=== PATIENT | female | born 1955 | race Caucasian/White ===

== ENCOUNTER 2017-10-09 15:01 | Emergency (ER) | payer OTHER ==
[2017-10-09] MEDS: HYDROCODONE/APAP (5/325) TAB PO (16:47)
[2017-10-09 16:51] LABS: URINE BLOOD (Dip) POC Negative (NEGATIVE); URINE GLUCOSE (Dip) POC Negative (NEGATIVE); URINE KETONES (Dip) POC Negative (NEGATIVE); URINE LEUKOCYTE EST (Dip) POC Negative (NEGATIVE); URINE NITRITE (Dip) POC Negative (NEGATIVE); URINE TOTAL PROTEIN POC Negative (NEGATIVE)
== END 2017-10-09 18:40 | disposition home or self-care (01) ==
LOC: FTE 15:01
DX: M25.552 Pain in left hip (principal); M54.2 Cervicalgia; M54.9 Dorsalgia, unspecified; M25.532 Pain in left wrist; M25.562 Pain in left knee; M25.572 Pain in left ankle and joints of left foot
CPT/HCPCS: 71045; 72040; 72100; 73110-LT; 73562; 73610; 73630-LT; 81003; 99284-25